=== PATIENT | male | born 1975 | race Two or more races ===

== ENCOUNTER 2018-05-13 10:18 | Emergency (ER) | payer MEDICAID, OTHER ==
[~2018-05-13] VITALS: Ht 180.3 cm; Wt 103.4 kg
[2018-05-13 10:23] VITALS: BP 142/96
[2018-05-13 11:45] LABS: Urine Amorphous Crystal FEW /hpf (None Seen); Urine Bacteria NONE SEEN /hpf (None Seen); Urine Blood Negative /uL (Negative); Urine Mucus FEW (None Seen); Urine Specific Gravity 1.024 (1.001-1.035); Urine WBC 1 /hpf (0 - 3)
[2018-05-13 12:23] LABS: Basophils # (auto) 0.1 uL; Basophils % (auto) 0.8 % (0.0-2.0); Eosinophils # (auto) 0.6 uL; Eosinophils % (auto) 8.2 % (0.0-7.0); Hematocrit 44.8 % (41.0-53.0); Hemoglobin 15.4 g/dL (13.5-17.5); Lymphocytes # (auto) 1.6 uL; Lymphocytes % (auto) 21.6 % (10.0-50.0); Mean Corpuscular Hemoglobin 30.7 pg (28.0-32.0); Mean Corpuscular Hgb Conc. 34.4 g/dL (32.0-36.0); Monocytes # (auto) 0.9 uL; Monocytes % (auto) 11.5 % (0.0-12.0); Neutrophils # (auto) 4.4 uL; Neutrophils % (auto) 57.9 % (37.0-80.0); Nucleated Red Blood Cells % 0.1 %; Platelet Count (auto) 275 10^3/uL (140-450); Red Blood Cells 5.03 10^6/uL (4.5-5.90); Red Cell Distribution Width 13.2 % (11.8-14.3); White Blood Cell 7.6 10^3/uL (4.4-10.8)
[2018-05-13 12:32] LABS: Albumin 3.6 g/dL (3.4-5.0); BUN/Creatinine Ratio 23.1; Calcium 8.6 mg/dL (8.5-10.1); Potassium 3.8 mmol/L (3.5-5.1)
[2018-05-13 12:35] LABS: Bilirubin, Total 0.6 mg/dL (0.2-1.0); Total Protein 7.1 g/dL (6.4-8.2)
[2018-05-13] MEDS ORDERED: ACETAMINOPHEN 500 MG TAB PO ONE (13:15)
== END 2018-05-13 14:40 | disposition home or self-care (01) ==
LOC: ER 10:18
DX: N45.1 Epididymitis (principal); R22.9 Localized swelling, mass and lump, unspecified
CPT/HCPCS: 36415; 76870; 80053; 81001; 85025

== ENCOUNTER 2024-05-11 15:16 | Emergency (ER) | payer MEDICAID ==
[~2024-05-11] VITALS: Ht 180.3 cm; Wt 101.6 kg
[2024-05-11] MEDS ORDERED: GABA-1250 PO (18:30)
[2024-05-11] MEDS ORDERED: IBUP-1455 PO (18:30)
[2024-05-11 19:00] VITALS: BP 119/89; PULSE 93; RESP 16; TEMP 97.4; O2SAT 100
[2024-05-11] MEDS: KETOROLAC TROMETH 60MG/2ML VIAL IM ONE (19:05)
[2024-05-11] MEDS: DexAMETHasone SOD PHOS 10MG/1ML VIAL INJ IM ONE (19:05)
== END 2024-05-11 19:13 | disposition home or self-care (01) ==
LOC: ER 15:16
DX: M47.22 Other spondylosis with radiculopathy, cervical region (principal)
CPT/HCPCS: 72040; 96372; 99284; J1100; J1885; 93005